=== PATIENT | female | born 1950 | race Caucasian/White ===

== ENCOUNTER 2019-03-27 07:39 | Inpatient (IN) | payer MEDICARE, MEDICAID ==
[2019-03-27 08:35] LABS: Hemoglobin 12.9 g/dL (12.0-16.0); Mean Corpuscular HGB CONC 33.5 g/dL (32.0-36.0); Mean Corpuscular Hemoglobin 30.2 pg (27.0-31.0); Mean Corpuscular Volume 90.1 fL (78.0-98.0); Mean Platelet Volume 7.4 fL (7.4-10.4); Platelet Count 163 thou/uL (130-400); RBC Distribution Width 12.8 % (11.5-14.5); Red Blood Cell (RBC) Count 4.27 mill/uL (4.20-5.40)
[2019-03-27 08:54] LABS: Anion Gap 13 mmol/L (10-20); BUN (Urea Nitrogen) 15 mg/dL (9.8-20.1); Calc. Creatinine Clearance 53 mL/min (70-130); Carbon Dioxide 28 mmol/L (23-31); Chloride 104 mmol/L (98-107); Estimated GFR-MDRD 61; Glucose 127 mg/dL (83-110); Potassium 5.4 mmol/L (3.5-5.1); Sodium 140 mmol/L (136-145)
--- NOTE | 2019-03-27 09:15 | RAD ---
Left knee 2 views HISTORY: Fall. Left knee pain. FINDINGS: Mild medial compartment joint space narrowing. Moderate tricompartmental osteophytosis. Cho ndrocalcinosis. Small amount of fluid distends the suprapatellar bursa. No acute fracture or dislocation. IMPRESSION: Osteoarthritic changes with small joint effusion. No acute osseous abnormalities are demonstrated.
[2019-03-27 09:25] VITALS: BMI 29.2
[2019-03-27] MEDS ORDERED: Sodium Chloride 0.9% 10 ML ONE (09:41)
[2019-03-27] MEDS ORDERED: Bacitracin Zinc Ointment 30 gm TUBE ONE (09:41)
[2019-03-27] MEDS ORDERED: Fentanyl 100 MCG/2 ML VIAL ONE ×5 (09:56→13:18)
[2019-03-27] MEDS ORDERED: Scopolamine 1.5 mg/72 hour Patch ONE (10:01)
[2019-03-27] MEDS ORDERED: Labetalol HCl 100 MG/20 ML VIAL ONE (12:15)
[2019-03-27] MEDS ORDERED: traMADol HCl 50 MG TAB PO PRN ×2 (15:43)
[2019-03-27] MEDS ORDERED: Acetaminophen 325 MG TAB PO PRN (15:43)
[2019-03-27] MEDS ORDERED: Promethazine HCl 25 MG/ML VIAL IM PRN (15:43)
[2019-03-27] MEDS ORDERED: Promethazine HCl 12.5 MG SUPP PR PRN (15:43)
[2019-03-27] MEDS ORDERED: Promethazine 25 MG TAB PO PRN (15:43)
[2019-03-27] MEDS ORDERED: Acetaminophen 650 MG Suppository PR PRN (15:43)
[2019-03-27] MEDS ORDERED: Mag-Al 1200 mg/1200 mg/30 ML UDCUP PO PRN (15:43)
[2019-03-27] MEDS ORDERED: diphenhydrAMINE 50 MG/ML VIAL IVP PRN (15:43)
[2019-03-27] MEDS ORDERED: Morphine 4 MG/ML VIAL SLOW IVP PRN (15:43)
[2019-03-27] MEDS ORDERED: Ondansetron PF 4 MG/2 ML Vial IVP PRN (15:43)
[2019-03-27] MEDS ORDERED: diphenhydrAMINE 25 MG CAP PO PRN (15:43)
[2019-03-27] MEDS ORDERED: tiZANidine HCl 4 MG TAB PO PRN (15:43)
[2019-03-27] MEDS ORDERED: Morphine 2 MG/ML SYRINGE SLOW IVP PRN (15:50)
[2019-03-27] MEDS: CEFAZOLIN 2 GM in Premix Bag 1 BAG IVPB SCH (16:44)
[2019-03-27] MEDS: Ketorolac Tromethamine 30 MG/ML VIAL IVP SCH (16:45)
[2019-03-27] MEDS: Sodium Chloride 0.9% 1,000 ML IV SCH (16:45)
--- NOTE | 2019-03-27 17:07 | OP ---
DATE OF PROCEDURE: 03/27/2019 [employer] WORKER: Onofre Donovan PA-C PROCEDURE PERFORMED: Anterior cervical diskectomy C5-C6 and C6-C7; interbody arthrodesis; intervertebral biomechanical device; local morselized autograft; demineralized bone matrix; anterior titanium instrumentation, C5 to C7. DESCRIPTION OF PROCEDURE: The patient was brought to the operating room and intubated. She was positioned supine with head in modest extension on a gel-filled donut. Incision was made in the right precervical area and dissected medial to the sternocleidomastoid muscle, identified the anterior cervical spinal, and the level was confirmed by x-ray. We debrided the anterior osteophytes, placed distraction across the disk space, and using the operative microscope and microdissection techniques, completely removed the intervertebral disks at C5-C6 and C6-C7. Next, an anterior plate was brought into the field and secured to C5, C6, and C7 using two 14-mm screws at each level. It should be noted that there was a fair bit of scar tissue anteriorly presumably related to prior procedure, and the patient also had extensive oozing throughout the case. The wound was then extensively irrigated. Maximum hemostasis was secured. The wound was closed in anatomic layers. Job ID: [id number]
[2019-03-27] MEDS ORDERED: Dextrose 50% Abboject 50 ML SYRINGE SLOW IVP PRN (20:48)
[2019-03-27] MEDS ORDERED: Dextrose 5% in Water 1,000 ML IV PRN (20:48)
[2019-03-27] MEDS ORDERED: Atorvastatin Calcium 40 MG TAB PO SCH (21:00)
[2019-03-27] MEDS: Gabapentin 300 MG CAP PO SCH (21:00)
[2019-03-27] MEDS ORDERED: Donepezil HCl 5 MG TAB PO SCH (21:00)
[2019-03-27] MEDS: Venlafaxine HCl XR 150 MG CAP PO SCH (21:00)
[2019-03-27] MEDS: Lisinopril 20 MG TAB PO SCH (21:00)
[2019-03-27] MEDS ORDERED: Dexamethasone 4 mg/ml Vial SLOW IVP SCH (21:30)
[2019-03-27] MEDS: HumaLOG 300 UNITS/3 ML VIAL SC PRN (21:40)
[2019-03-28] MEDS: Ketorolac Tromethamine 30 MG/ML VIAL IVP SCH ×2 (00:43→05:54)
[2019-03-28] MEDS: CEFAZOLIN 2 GM in Premix Bag 1 BAG IVPB SCH (00:47)
[2019-03-28] MEDS ORDERED: Dexamethasone 4 mg/ml Vial SLOW IVP PRN (03:30)
[2019-03-28] MEDS: HumaLOG 300 UNITS/3 ML VIAL SC PRN (05:54)
[2019-03-28] MEDS: Sodium Chloride 0.9% 1,000 ML IV SCH (05:59)
[2019-03-28] MEDS ORDERED: Glimepiride 4 MG TAB PO SCH (07:30)
[2019-03-28] MEDS ORDERED: HumaLOG 300 UNITS/3 ML VIAL SC PRN ×2 (07:39)
[2019-03-28] MEDS ORDERED: metFORMIN 500 MG TAB PO SCH (08:00)
[2019-03-28 08:17] VITALS: BP 135/64; TEMP 97.8
[2019-03-28] MEDS ORDERED: Nadolol 40 MG TAB PO SCH (09:00)
[2019-03-28] MEDS ORDERED: ENTECAVIR 0.5 MG TAB PO SCH (09:00)
[2019-03-28] MEDS ORDERED: Insulin Glargine 24 UNITS in Pre-Filled Syringe 1 EACH SC SCH (09:00)
[2019-03-28] MEDS: Gabapentin 300 MG CAP PO SCH (09:57)
[2019-03-28] MEDS: Lisinopril 20 MG TAB PO SCH (09:59)
[2019-03-28] MEDS: Venlafaxine HCl XR 150 MG CAP PO SCH (10:02)
--- NOTE | 2019-03-29 09:09 | DIS ---
DATE OF ADMISSION: 03/27/2019 DATE OF DISCHARGE: 03/28/2019 HOSPITAL COURSE: The patient is a 69-year-old female status post C5 to C7 ACDF. Following the surgery, she was transitioned to the floor. She did have JOANA drain placed intraoperatively and had 20 mL of output overnight. The patient did develop some dysphagia overnight as well and was treated with 8 mg of IV Decadron. She had significant improvement in her dysphagia and now is tolerating p.o. without any difficulty. Her pain has been well controlled with p.o. medications, she is tolerating a regular diet, and voiding appropriately. She has had no incisional drainage issues. The patient is awake, alert, in no acute distress. She has free active range of motion of all extremities. No focal motor weakness. No reflex asymmetry. Her dressing is dry and intact. There is only a tiny amount of dark red blood in the JOANA drain. We will plan to remove her JOANA drain and dismiss the patient home. I will consult case management at discharge to arrange home health PT and nursing. Discussed home care precautions. Job ID: [id number]
== END 2019-03-28 10:30 | disposition home or self-care (01) | DRG 473 ==
LOC: EDBD → SDC 07:39 → 3SE 08:00
PROVIDERS: ADMIT Neurological Surgery; ATTEND Neurological Surgery
PROC: 0RT30ZZ Resection of Cervical Vertebral Disc, Open Approach (ICD-10-PCS; principal; 2019-03-27)
PROC: 0RG20A0 Fusion of 2 or more Cervical Vertebral Joints with Interbody Fusion Device, Anterior Approach, Anterior Column, Open Approach (ICD-10-PCS; 2019-03-27)
DX: M47.12 Other spondylosis with myelopathy, cervical region (principal); J44.9 Chronic obstructive pulmonary disease, unspecified; I10 Essential (primary) hypertension; E78.00 Pure hypercholesterolemia, unspecified
CPT/HCPCS: 36416; 76000; 80048; 85027; 93005; 93010; C1713; C1776; J0690; J1100; J1825; J1885; J3010; J3490

== ENCOUNTER 2019-03-31 10:56 | Emergency (ER) | payer MEDICARE, MEDICAID ==
[2019-03-31] MEDS ORDERED: Dexamethasone 4 mg/ml Vial ONE (11:43)
[2019-03-31 11:46] LABS: #Eosinphils 0.3 thou/uL (0.0-0.7); #Monocytes 0.5 thou/uL (0.11-0.59); #Neutrophils 5.5 thou/uL (1.40-6.50); %Basophils 0.2 % (0.0-1.0); %Eosinophils 3.1 % (0.0-10.0); %Lymphocytes 24.1 % (21.0-51.0); %Monocytes 6.5 % (0.0-10.0); %Neutrophils 66.1 % (42.0-75.0); Hemoglobin 10.8 g/dL (12.0-16.0); Mean Corpuscular HGB CONC 32.5 g/dL (32.0-36.0); Mean Corpuscular Volume 92.3 fL (78.0-98.0); Mean Platelet Volume 6.8 fL (7.4-10.4); Platelet Count 140 thou/uL (130-400); RBC Distribution Width 12.9 % (11.5-14.5); Red Blood Cell (RBC) Count 3.61 mill/uL (4.20-5.40); White Blood Cell (WBC) Count 8.4 thou/uL (4.8-10.8)
[2019-03-31 12:03] LABS: ALT (SGPT) 16 U/L (8-55); AST (SGOT) 26 U/L (5-34); Albumin 3.7 g/dL (3.4-4.8); Alkaline Phosphatase 61 U/L (40-150); Anion Gap 14 mmol/L (10-20); BUN (Urea Nitrogen) 16 mg/dL (9.8-20.1); Bilirubin, Total 0.6 mg/dL (0.2-1.2); Calc. Creatinine Clearance 0 mL/min (70-130); Calcium 9.2 mg/dL (7.8-10.44); Carbon Dioxide 27 mmol/L (23-31); Chloride 102 mmol/L (98-107); Estimated GFR-MDRD 52; Globulin 2.9 g/dL (2.4-3.5); Glucose 131 mg/dL (83-110); Potassium 5.2 mmol/L (3.5-5.1); Protein, Total 6.6 g/dL (6.0-8.3); Sodium 138 mmol/L (136-145)
[2019-03-31 13:04] LABS: Bilirubin Small (Negative); Blood, Urine Negative (Negative); Clarity CLEAR (Clear); Glucose, Urine (Dipstick) Negative (Negative); Leukocyte Negative (Negative); Nitrite Negative (Negative); Protein, Urine (Dipstick) Trace mg/dL (Neg-Trace); Specific Gravity, Urine 1.019 (1.002-1.036)
--- NOTE | 2019-03-31 13:08 | RAD ---
CHEST ONE VIEW: HISTORY: Chest pain. Pain in upper chest, left axilla, and down both arms. FINDINGS: Heart size is within normal limits. Lungs are clear. No confluent pneumonia, overt edema, or other acute process. IMPRESSION: 1. No acute intrathoracic disease. 2. Atherosclerosis of the aorta. POS: C
== END 2019-03-31 13:54 | disposition home or self-care (01) ==
LOC: ERS 10:56
DX: G89.18 Other acute postprocedural pain (principal); E11.9 Type 2 diabetes mellitus without complications; E78.5 Hyperlipidemia, unspecified; I10 Essential (primary) hypertension; F41.9 Anxiety disorder, unspecified; F32.9 Major depressive disorder, single episode, unspecified; F17.210 Nicotine dependence, cigarettes, uncomplicated; Z79.899 Other long term (current) drug therapy; Z79.4 Long term (current) use of insulin; Z86.73 Personal history of transient ischemic attack (TIA), and cerebral infarction without residual deficits; Z79.82 Long term (current) use of aspirin
CPT/HCPCS: 36415; 71045; 80053; 81003; 82140; 85025; 93005; 96374; J1100